=== PATIENT | male | born 1940 | race Caucasian/White ===

== ENCOUNTER 2017-07-26 07:23 | Emergency (ER) | payer OTHER ==
[~2017-07-26] VITALS: Ht 175.3 cm; Wt 78.5 kg
[2017-07-26 07:30] VITALS: BP_SYST 175
[2017-07-26 07:55] LABS: BASOPHILS % (AUTO) 0.7 % (0.0-2.0); EOSINOPHILS # (AUTO) 0.1 K/uL (0.0-0.4); EOSINOPHILS % (AUTO) 1.2 % (0.0-4.0); HEMATOCRIT 39.4 % (36-54); HEMOGLOBIN 13.5 g/dL (14.0-18.0); LYMPHOCYTES % (AUTO) 19.1 % (20.5-51.5); MEAN CORPUSCULAR HEMOGLOBIN 31 pg (27-31); MEAN CORPUSCULAR HGB CONC 34 % (32-36); MEAN CORPUSCULAR VOLUME 92 fL (79.0-98.0); MONOCYTES # (AUTO) 0.6 K/uL (0.0-1.0); MONOCYTES % (AUTO) 10.5 % (1.7-9.3); NEUTROPHILS # (AUTO) 3.7 K/uL (1.8-7.7); NEUTROPHILS % (AUTO) 68.5 % (40.0-70.0); PLATELET COUNT (AUTO) 203 K/uL (130-430); RED BLOOD CELL COUNT(AUTO) 4.31 MIL/uL (4.2-6.2); RED CELL DISTRIBUTION WIDTH 11.8 % (9.0-15.0); WHITE BLOOD COUNT (AUTO) 5.4 K/uL (4.8-10.8)
[2017-07-26 08:06] LABS: ANION GAP 10 (5-15); CHLORIDE 106 mmol/L (98-107); GLUCOSE 102 mg/dL (70-99); POTASSIUM 4.1 mmol/L (3.5-5.1); SODIUM SERUM 141 mmol/L (136-145)
[2017-07-26 08:07] LABS: CALCIUM 9.5 mg/dL (8.4-11.0); CREATININE 0.98 mg/dL (0.55-1.30); UREA NITROGEN, BLOOD 25 mg/dL (8-21)
[2017-07-26 08:10] LABS: PROTHROMBIN TIME 11.3 SECS (9.5-12.5)
[2017-07-26 08:11] LABS: ALANINE AMINOTRANSFERASE 23 U/L (12-78); ALBUMIN 3.5 g/dL (3.4-4.8); ASPARTATE AMINOTRANSFERASE 21 U/L (10-37); TOTAL BILIRUBIN 0.9 mg/dL (0.0-1.0)
[2017-07-26 08:22] LABS: ALCOHOL, BLOOD < 3 mg/dL (<10)
[2017-07-26 08:31] LABS: ACETAMINOPHEN < 1 ug/mL (1-30)
[2017-07-26 08:58] VITALS: BP_SYST 188
== END 2017-07-26 08:58 | disposition short-term general hospital (02) ==
LOC: SED 07:23
DX: I62.03 Nontraumatic chronic subdural hemorrhage (principal); I10 Essential (primary) hypertension; Z88.0 Allergy status to penicillin; Z95.9 Presence of cardiac and vascular implant and graft, unspecified
CPT/HCPCS: 36415; 70450; 71010; 80053; 82550; 82962; 84484; 85025; 85610; 85730; 93005; 99285; G0480; G0481; G0482